=== PATIENT | female | born 1945 | race Caucasian/White ===

== ENCOUNTER → 2018-11-10 | Outpatient (CLI) | payer OTHER, MEDICARE ==
[~2018-11-10] MED LIST: ALDACTONE25 MG PO; ASPIRIN81 M2 PO; BENICAR HCT 201 EACH PO; BENICAR40 MG; CARVEDILOL6.25 MG PO; LISINOPRIL10 MG PO; RITALIN10 MG PO; SYSTANE 0.3-0.1 EACH OPHTHALMIC; XANAX 0.25 MG0.25 MG PO
== END ==
LOC: RAD 09:39
DX: M51.16 Intervertebral disc disorders with radiculopathy, lumbar region (principal); M81.0 Age-related osteoporosis without current pathological fracture; M85.89 Other specified disorders of bone density and structure, multiple sites; M48.07 Spinal stenosis, lumbosacral region